=== PATIENT | female | born 2000 ===

== ENCOUNTER 2021-05-13 05:26 | Emergency (ER) | payer BC ==
[2021-05-13 05:54] VITALS: BP 122/77; PULSE 85; TEMP 99
[2021-05-13 05:56] VITALS: RESP 15
--- NOTE | 2021-05-13 06:34 | ED ---
General Adult HPI - General Chief complaint: ENT Stated complaint: Cough Time Seen by Provider: 05/13/21 05:59 Source: patient, RN notes reviewed Mode of arrival: ambulatory Limitations: no limitations - History of Present Illness Initial comments: This 21-year-old female presents to the emergency department with a cough x5 days. She states that 8 days ago she received her second COVID vaccine, and then started having night sweats next day. She states a few days after she received the vaccine she developed a dry cough. Patient admits to having di arrhea, sweats/chills, and a runny nose. She denies any chest pain, shortness of breath, vomiting, or sore throat. Patient states she works with [employer] for her job. Patient has been taking Mucinex and Robitussin which seems to help her cough. She states the cold air worsens or cough. -: days(s) Radiation: non-radiation Consistency: intermittent Improves with: medication Worsens with: cold therapy Associated Symptoms: diaphoresis, fever/chills - Related Data Allergies Allergy/AdvReac Type Severity Reaction Status Date / Time No Known Allergies Allergy Verified 05/13/21 05:54 Review of Systems ROS Statement: Those systems with pertinent positive or pertinent negative responses have been documented in the HPI. ROS Other: All systems not noted in ROS Statement are negative. Constitutional: Reports: chills, night sweats Past Medical History Past Medical History: Asthma History of Any Multi-Drug Resistant Organisms: None Reported Past Surgical History: No Surgical Hx Reported Past Psychological History: Anxiety Smoking Status: Never smoker Past Alcohol Use History: Occasional Past Drug Use History: Marijuana General Exam Limitations: no limitations General appearance: alert, in no apparent distress Head exam: Present: atraumatic, normocephalic, normal inspection Eye exam: Present: normal appearance, PERRL, EOMI. Absent: scleral icterus, conjunctival injection, periorbital swelling ENT exam: Present: normal exam, mucous membranes moist Neck exam: Present: normal inspection. Absent: tenderness, meningismus, lymphadenopathy Respiratory exam: Present: normal lung sounds bilaterally. Absent: respiratory distress, wheezes, rales, rhonchi, stridor Cardiovascular Exam: Present: regular rate, normal rhythm, normal heart sounds. Absent: systolic murmur, diastolic murmur, rubs, gallop, clicks GI/Abdominal exam: Present: soft, tenderness (Diffuse tenderness to palpation), normal bowel sounds. Absent: distended, guarding, rebound, rigid Extremities exam: Present: full ROM. Absent: tenderness, pedal edema, joint sw elling, calf tenderness Neurological exam: Present: alert, oriented X3 Psychiatric exam: Present: normal affect Skin exam: Present: warm, dry, intact, normal color. Absent: rash Course Vital Signs 05/13/21 05/13/21 05:48 05:55 Temperature 99 F Pulse Rate 85 Respiratory 20 15 Rate Blood Pressure 122/77 O2 Sat by Pulse 100 Oximetry Medical Decision Making - Medical Decision Making This 21-year-old female had a negative covid test. Diagnosed with viral upper respiratory infection. - Lab Data Lab Results 05/13/21 Range/Units 05:57 Coronavirus (PCR) Not Detected (Not Detectd) Disposition Clinical Impression: Viral URI with cough Disposition: HOME SELF-CARE Condition: Stable Instructions (If sedation given, give patient instructions): Upper Respiratory Infection (DC) Additional Instructions: Please return to the ER if symptoms worsen. Is patient prescribed a controlled substance at d/c from ED?: No Referrals: None,Stated [Primary Care Provider] - 1-2 days Time of Disposition: 08:15
== END 2021-05-13 08:40 | disposition home or self-care (01) ==
LOC: EC 05:26
DX: J06.9 Acute upper respiratory infection, unspecified (principal); J45.909 Unspecified asthma, uncomplicated; F41.9 Anxiety disorder, unspecified; F12.90 Cannabis use, unspecified, uncomplicated; Z72.89 Other problems related to lifestyle
CPT/HCPCS: 87635; 99283

== ENCOUNTER 2021-08-10 01:25 | Emergency (ER) | payer BC, OTHER ==
[2021-08-10 01:48] VITALS: BP 129/70; PULSE 53; RESP 18; TEMP 97.3
[2021-08-10] MEDS ORDERED: ONDANSETRON 4 MG/2 ML VIAL IVP STA (02:12)
[2021-08-10] MEDS ORDERED: KETOROLAC 15 MG/ML 1 ML VIAL IVP STA (02:12)
[2021-08-10] MEDS ORDERED: SODIUM CHLORIDE 0.9% 1,000 ML IV STA (02:12)
[2021-08-10 02:17] LABS: Amorphous Sediment,Urine Rare /hpf; Appearance,Urine Cloudy (Clear); Bilirubin,Urine Negative (Negative); Blood,Urine Negative (Negative); Color,Urine Light Yellow; Glucose,Urine (UA) Negative (Negative); Ketones,Urine Negative (Negative); Leukocyte Esterase,Urine Negative (Negative); Mucus,Urine Rare /hpf; Nitrite,Urine Negative (Negative); PH, Urine 6.5 (5.0-8.0); Protein,Urine Negative (Negative); Squamous Epithelial Cell,Urine 3 /hpf (0-4); Urobilinogen,Urine <2.0 mg/dL (<2.0); WBC,Urine 2 /hpf (0-5)
--- NOTE | 2021-08-10 02:19 | ED ---
General Adult HPI - General Chief complaint: Back Pain/Injury Stated complaint: Back Pain Time Seen by Provider: 08/10/21 02:05 Source: patient, RN notes reviewed, old records reviewed Mode of arrival: ambulatory - History of Present Illness Initial comments: 21-year-old female presents complaining of rectal bleeding and right lower back pain. Patient states that she was seen for this at urgent care 3 weeks ago was told she had hemorrhoids. Patient states that she notices the bleeding only during bowel movements. She is also complaining of some nausea and vomiting, denies any dysuria, or fevers. Patient states that she is not sure if she is . Was told at urgent care she was positive for 3 weeks ago but went to [facility] 2 weeks ago to confirm and was told it was negative. She denies any vaginal bleeding or discharge. History of asthma. She smokes marijuana, no other drug use. -: week(s) (3) Severity scale (1-10): 0 Consistency: intermittent, now resolved Worsens with: other (bowel movements) Associated Symptoms: other (rectal bleeding, right lower back pain) - Related Data Previous Rx's Medication Instructions Recorded Lidocaine 5% Patch [Lidoderm] 1 patch TOPICAL DAILY PRN 7 Days 08/10/21 #7 patch polyethylene glycoL 3350 [Miralax] 17 gm PO DAILY 30 Days #30 packet 08/10/21 Allergies Allergy/AdvReac Type Severity Reaction Status Date / Time amoxicillin AdvReac Rash/Hives Verified 08/10/21 01:48 Review of Systems ROS Statement: Those systems with pertinent positive or pertinent negative responses have been documented in the HPI. ROS Other: All systems not noted in ROS Statement are negative. Past Medical History Past Medical History: Asthma History of Any Multi-Drug Resistant Organisms: None Reported Past Surgical History: No Surgical Hx Reported Past Psychological History: Anxiety, Depression Smoking Status: Never smoker Past Alcohol Use History: Occasional Past Drug Use History: Marijuana General Exam Limitations: no limitations General appearance: alert, in no apparent distress Head exam: Present: atraumatic Eye exam: Present: normal appearance. Absent: scleral icterus, conjunctival injection ENT exam: Present: normal exam, normal oropharynx, mucous membranes moist Neck exam: Present: normal inspection, full ROM. Absent: tenderness, meningismus Respiratory exam: Present: normal lung sounds bilaterally. Absent: respiratory distress, wheezes, rales, rhonchi, stridor, accessory muscle use, decreased breath sounds Cardiovascular Exam: Present: bradycardia, normal heart sounds GI/Abdominal exam: Present: soft, normal bowel sounds. Absent: distended, tenderness, guarding, rebound, rigid Rectal exam: Present: hemorrhoids (one hemorrhoid at 6oc[address], not thrombosed no active bleeding, no tenderness) Extremities exam: Present: normal capillary refill. Absent: pedal edema Back exam: Present: normal inspection, full ROM, tenderness (Right lumbar sacral paraspinal tenderness). Absent: CVA tenderness (R), CVA tenderness (L), vertebral tenderness, rash noted Neurological exam: Present: alert, oriented X3 Psychiatric exam: Present: normal affect, normal mood Skin exam: Present: warm, dry, normal color. Absent: rash, cyanosis, diaphoretic, pallor Course Vital Signs 08/10/21 01:42 Temperature 97.3 F L Pulse Rate 53 L Respiratory 18 Rate Blood Pressure 129/70 O2 Sat by Pulse 99 Oximetry Medical Decision Making - Medical Decision Making 21-year-old female presents complaining of rectal bleeding with bowel movements and right lower back pain. She is also complaining of some nausea and vomiting, denies any dysuria, or fevers. Denies any vaginal bleeding or discharge. UA shows no evidence of infection, blood, ketones or . Hemoglobin and hematocrit are stable no evidence of leukocytosis. X-ray shows no intestinal obstruction or pneumoperitoneum. There is no evidence of mass and fecal pattern is normal. Upon exam patient's abdomen is soft and nontender. She does have pain to the r ight lower LS-spine. Rectal exam does show a small nonthrombosed hemorrhoid at 6:00. No fissure noted. Patient's rectal bleeding likely due to hemorrhoids. She no longer has vomiting after given Zofran in the emergency room. She was prescribed MiraLAX for constipation and Lidoderm patches for low back pain. She is instructed to follow-up with her primary care doctor and return to the emergency room with any new or concerning symptoms. - Lab Data Result diagrams: 08/10/21 02:14 08/10/21 02:14 Lab Results 08/10/21 08/10/21 08/10/21 Range/Units 02:02 02:02 02:14 WBC 4.7 (3.8-10.6) k/uL RBC 4.34 (3.80-5.40) m/uL Hgb 11.2 L (11.4-16.0) gm/dL Hct 36.2 (34.0-46.0) % MCV 83.5 (80.0-100.0) fL MCH 25.7 (25.0-35.0) pg MCHC 30.8 L (31.0-37.0) g/dL RDW 14.6 (11.5-15.5) % Plt Count 271 (150-450) k/uL MPV 7.0 Neutrophils % 35 % Lymphocytes % 48 % Monocytes % 6 % Eosinophils % 8 % Basophils % 1 % Neutrophils # 1.6 (1.3-7.7) k/uL Lymphocytes # 2.3 (1.0-4.8) k/uL Monocytes # 0.3 (0-1.0) k/uL Eosinophils # 0.4 (0-0.7) k/uL Basophils # 0.0 (0-0.2) k/uL Hypochromasia Slight PT (9.0-12.0) sec INR (<1.2) APTT (22.0-30.0) sec Sodium (137-145) mmol/L Potassium (3.5-5.1) mmol/L Chloride (98-107) mmol/L Carbon Dioxide (22-30) mmol/L Anion Gap mmol/L BUN (7-17) mg/dL Creatinine (0.52-1.04) mg/dL Est GFR (CKD-EPI)AfAm (>60 ml/min/1.73 sqM) Est GFR (CKD-EPI)NonAf (>60 ml/min/1.73 sqM) Glucose (74-99) mg/dL Calcium (8.4-10.2) mg/dL Total Bilirubin (0.2-1.3) mg/dL AST (14-36) U/L ALT (4-34) U/L Alkaline Phosphatase (38-126) U/L Total Protein (6.3-8.2) g/dL Albumin (3.5-5.0) g/dL Amylase (30-110) U/L Lipase (23-300) U/L Urine Color Light Yellow Urine Appearance Cloudy H (Clear) Urine pH 6.5 (5.0-8.0) Ur Specific [place] 1.020 (1.001-1.035) Urine Protein Negative (Negative) Urine Glucose (UA) Negative (Negative) Urine Ketones Negative (Negative) Urine Blood Negative (Negative) Urine Nitrite Negative (Negative) Urine Bilirubin Negative (Negative) Urine Urobilinogen <2.0 (<2.0) mg/dL Ur Leukocyte Esterase Negative (Negative) Urine WBC 2 (0-5) /hpf Ur Squamous Epith Cells 3 (0-4) /hpf Amorphous Sediment Rare H (None) /hpf Urine Mucus Rare H (None) /hpf Urine HCG, Qual Not Detected (Not Detectd) 08/10/21 08/10/21 Range/Units 02:14 02:14 WBC (3.8-10.6) k/uL RBC (3.80-5.40) m/uL Hgb (11.4-16.0) gm/dL Hct (34.0-46.0) % MCV (80.0-100.0) fL MCH (25.0-35.0) pg MCHC (31.0-37.0) g/dL RDW (11.5-15.5) % Plt Count (150-450) k/uL MPV Neutrophils % % Lymphocytes % % Monocytes % % Eosinophils % % Basophils % % Neutrophils # (1.3-7.7) k/uL Lymphocytes # (1.0-4.8) k/uL Monocytes # (0-1.0) k/uL Eosinophils # (0-0.7) k/uL Basophils # (0-0.2) k/uL Hypochromasia PT 10.4 (9.0-12.0) sec INR 0.9 (<1.2) APTT 24.8 (22.0-30.0) sec Sodium 137 (137-145) mmol/L Potassium 4.4 (3.5-5.1) mmol/L Chloride 108 H (98-107) mmol/L Carbon Dioxide 21 L (22-30) mmol/L Anion Gap 8 mmol/L BUN 16 (7-17) mg/dL Creatinine 0.87 (0.52-1.04) mg/dL Est GFR (CKD-EPI)AfAm >90 (>60 ml/min/1.73 sqM) Est GFR (CKD-EPI)NonAf >90 (>60 ml/min/1.73 sqM) Glucose 98 (74-99) mg/dL Calcium 9.3 (8.4-10.2) mg/dL Total Bilirubin 0.6 (0.2-1.3) mg/dL AST 35 (14-36) U/L ALT 21 (4-34) U/L Alkaline Phosphatase 67 (38-126) U/L Total Protein 7.8 (6.3-8.2) g/dL Albumin 4.6 (3.5-5.0) g/dL Amylase 125 H (30-110) U/L Lipase 231 (23-300) U/L Urine Color Urine Appearance (Clear) Urine pH (5.0-8.0) Ur Specific [place] (1.001-1.035) Urine Protein (Negative) Urine Glucose (UA) (Negative) Urine Ketones (Negative) Urine Blood (Negative) Urine Nitrite (Negative) Urine Bilirubin (Negative) Urine Urobilinogen (<2.0) mg/dL Ur Leukocyte Esterase (Negative) Urine WBC (0-5) /hpf Ur Squamous Epith Cells (0-4) /hpf Amorphous Sediment (None) /hpf Urine Mucus (None) /hpf Urine HCG, Qual (Not Detectd) Disposition Clinical Impression: Constipation, Vomiting, Back pain Disposition: HOME SELF-CARE Condition: Good Instructions (If sedation given, give patient instructions): Constipation (ED), Acute Nausea and Vomiting (ED), Acute Low Back Pain (ED) Additional Instructions: Increase your fluid intake. Take the MiraLAX 1 packet a day for constipation. Stop taking if you develop diarrhea. You can take Benadryl [id number] for any nausea. I would suggest taking Pepcid or Tums for upset stomach. Use Lidoderm patches for pain relief. You can also take Tylenol and or Motrin as needed for pain. Follow-up with your primary care doctor next week to discuss your symptoms. Return to the emergency room with any new or concerning symptoms. Prescriptions: Lidocaine 5% Patch [Lidoderm] 1 patch TOPICAL DAILY PRN 7 Days #7 patch PRN Reason: Pain polyethylene glycoL 3350 [Miralax] 17 gm PO DAILY 30 Days #30 packet Is patient prescribed a controlled substance at d/c from ED?: No Referrals: None,Stated [Primary Care Provider] - 1-2 days Time of Disposition: 03:16
[2021-08-10 02:40] LABS: Basophils % (A) 1 %; Eosinophils # (A) 0.4 k/uL (0-0.7); Eosinophils % (A) 8 %; HCT 36.2 % (34.0-46.0); HGB 11.2 gm/dL (11.4-16.0); Hypochromasia Slight; Lymphocytes # (A) 2.3 k/uL (1.0-4.8); Lymphocytes % (A) 48 %; MCH 25.7 pg (25.0-35.0); MCHC 30.8 g/dL (31.0-37.0); MCV 83.5 fL (80.0-100.0); Monocytes # (A) 0.3 k/uL (0-1.0); Monocytes % (A) 6 %; Neutrophils # (A) 1.6 k/uL (1.3-7.7); Neutrophils % (A) 35 %; Platelet Count 271 k/uL (150-450); RBC 4.34 m/uL (3.80-5.40); RDW 14.6 % (11.5-15.5); WBC 4.7 k/uL (3.8-10.6)
--- NOTE | 2021-08-10 02:42 | XR ---
EXAMINATION TYPE: XR KUB DATE OF EXAM: 08/10/2021 COMPARISON: NONE HISTORY: Pain TECHNIQUE: 2 views FINDINGS: 2 views upright show no sign of intestinal obstruction or pneumoperitoneum. Fecal pattern i s normal. There is no evidence of a mass. IMPRESSION: Nonacute abdomen.
[2021-08-10 02:45] LABS: INR 0.9 (<1.2); Partial Thromboplastin Time 24.8 sec (22.0-30.0); Prothrombin Time 10.4 sec (9.0-12.0)
[2021-08-10] MEDS ORDERED: FAMOTIDINE 20 MG/2 ML VIAL IV STA (02:51)
[2021-08-10 02:53] LABS: ALT 21 U/L (4-34); African American GFR (CKD) >90 (>60 ml/min/1.73 sqM); Albumin 4.6 g/dL (3.5-5.0); Amylase 125 U/L (30-110); Anion Gap 8 mmol/L; Blood Urea Nitrogen 16 mg/dL (7-17); Calcium 9.3 mg/dL (8.4-10.2); Carbon Dioxide 21 mmol/L (22-30); Chloride 108 mmol/L (98-107); Glucose 98 mg/dL (74-99); Lipase 231 U/L (23-300); Non-African American GFR(CKD) >90 (>60 ml/min/1.73 sqM); Sodium 137 mmol/L (137-145); Total Bilirubin 0.6 mg/dL (0.2-1.3); Total Protein 7.8 g/dL (6.3-8.2)
[2021-08-10 02:55] LABS: AST 35 U/L (14-36); Alkaline Phosphatase 67 U/L (38-126); Potassium 4.4 mmol/L (3.5-5.1)
[2021-08-10] MEDS ORDERED: LIDOCAINE 5% PATCH TOPICAL STA (03:19)
== END 2021-08-10 04:10 | disposition home or self-care (01) ==
LOC: EC 01:25
DX: K59.00 Constipation, unspecified (principal); K64.9 Unspecified hemorrhoids; R11.2 Nausea with vomiting, unspecified; M54.50 Low back pain, unspecified; F12.90 Cannabis use, unspecified, uncomplicated
CPT/HCPCS: 36415; 80053; 82150; 83690; 85025; 85610; 85730; 81001; 81025; 74018; 99284; 96374; 96375 ×2; 96361; J2405; J1885

== ENCOUNTER 2021-08-12 14:01 | Emergency (ER) | payer OTHER ==
[2021-08-12 14:20] VITALS: RESP 18; TEMP 99.2
[2021-08-12] MEDS ORDERED: KETOROLAC 15 MG/ML 1 ML VIAL IVP STA (14:42)
[2021-08-12] MEDS ORDERED: ONDANSETRON 4 MG/2 ML VIAL IVP STA (14:42)
[2021-08-12] MEDS ORDERED: SODIUM CHLORIDE 0.9% 1,000 ML IV STA (14:42)
[2021-08-12 15:01] LABS: Basophils % (A) 1 %; Eosinophils # (A) 0.4 k/uL (0-0.7); Eosinophils % (A) 8 %; HCT 35.7 % (34.0-46.0); HGB 11.4 gm/dL (11.4-16.0); Lymphocytes # (A) 1.7 k/uL (1.0-4.8); Lymphocytes % (A) 40 %; MCH 26.5 pg (25.0-35.0); MCHC 31.9 g/dL (31.0-37.0); MCV 83.1 fL (80.0-100.0); Mean Platelet Volume 6.9; Monocytes # (A) 0.3 k/uL (0-1.0); Monocytes % (A) 6 %; Neutrophils # (A) 1.8 k/uL (1.3-7.7); Neutrophils % (A) 42 %; Platelet Count 295 k/uL (150-450); RDW 14.7 % (11.5-15.5); WBC 4.3 k/uL (3.8-10.6)
[2021-08-12 15:12] LABS: ALT 27 U/L (4-34); AST 35 U/L (14-36); African American GFR (CKD) >90 (>60 ml/min/1.73 sqM); Albumin 4.8 g/dL (3.5-5.0); Alkaline Phosphatase 56 U/L (38-126); Amylase 110 U/L (30-110); Anion Gap 11 mmol/L; Blood Urea Nitrogen 14 mg/dL (7-17); Calcium 9.8 mg/dL (8.4-10.2); Carbon Dioxide 23 mmol/L (22-30); Chloride 106 mmol/L (98-107); Glucose 83 mg/dL (74-99); Lipase 201 U/L (23-300); Non-African American GFR(CKD) 87 (>60 ml/min/1.73 sqM); Sodium 140 mmol/L (137-145); Total Bilirubin 0.6 mg/dL (0.2-1.3); Total Protein 8.1 g/dL (6.3-8.2)
--- NOTE | 2021-08-12 15:12 | ED ---
GI Bleed HPI - General Chief complaint: GI Bleed Stated complaint: GI Bleeding, Abdominal Pain Time Seen by Provider: 08/12/21 14:27 Source: patient, family, RN notes reviewed Mode of arrival: ambulatory Limitations: no limitations - History of Present Illness Initial comments: This is a 21-year-old female who presents to the emergency Department for hem atemesis and hematochezia. She was evaluated in the emergency department 2 days ago for rectal bleeding. Workup at that time was unremarkable, imaging included a KUB, which revealed no acute abnormalities. On rectal exam, she was noted to have a small nonthrombosed hemorrhoid. Patient states that since this time, her symptoms have progressed. The amount of blood with each episode of emesis varie s, states that if she eats more, she has more blood. Bowel movements are described as either only blood or hai blood mixed with stool. Denies feeling constipated, but does feel a generalized abdominal pain. She would not describe this as a feeling of bloating or burning, but states that she has aching primarily in the bilateral upper quadrants. Symptoms have been going on for 5 days, with the nausea and vomiting present for 4 days, and she is unable to keep anything down. Overall, she states that she just continues to feel worse. States that she is from [place] but recently moved here, and is in the process of having medicaid approved. Until she has medicaid approved, she is unable to see a specialist. She also does not have a primary care provider since she has just moved to the area. MD complaint: blood streaked emesis, blood streaked stool, gross hematochezia Onset/Timin -: days(s) Radiation: none Context: hemorrhoids Associated Symptoms: abdominal pain, nausea, vomiting - Related Data Home Medications Medication Instructions Recorded Confirmed Calcium Carbonate [Tums] 500 mg PO QID PRN 08/12/21 08/12/21 Previous Rx's Medication Instructions Recorded Lidocaine 5% Patch [Lidoderm] 1 patch TOPICAL DAILY PRN 7 Days 08/10/21 #7 patch polyethylene glycoL 3350 [Miralax] 17 gm PO DAILY 30 Days #30 packet 08/10/21 Famotidine/Ca Carb/Mag Hydrox 1 tab PO QAM 14 Days #14 tab 08/12/21 [Pepcid Complete Tablet Chew] Metoclopramide Oral Soln [Reglan 10 mg PO QID PRN #450 ml 08/12/21 Oral Soln] Ondansetron Odt [Zofran Odt] 4 mg PO Q8HR PRN #10 tab 08/12/21 Simethicone [Simethicone Chew] 80 mg PO QID PRN #30 tab 08/12/21 Allergies Allergy/AdvReac Type Severity Reaction Status Date / Time amoxicillin AdvReac Rash/Hives Verified 08/12/21 16:05 Review of Systems ROS Statement: Those systems with pertinent positive or pertinent negative responses have been documented in the HPI. ROS Other: All systems not noted in ROS Statement are negative. Constitutional: Reports: chills. Denies: fever ENT: Denies: ear pain, throat pain Respiratory: Denies: cough, dyspnea Cardiovascular: Denies: chest pain, palpitations Gastrointestinal: Reports: abdominal pain, nausea, vomiting, hematemesis, hematochezia Genitourinary: Denies: urgency, dysuria Skin: Denies: rash Neurological: Denies: headache Past Medical History Past Medical History: Asthma History of Any Multi-Drug Resistant Organisms: None Reported Past Surgical History: No Surgical Hx Reported Past Psychological History: Anxiety, Depression Smoking Status: Never smoker Past Alcohol Use History: Occasional Past Drug Use History: Marijuana General Exam Limitations: no limitations General appearance: alert, in distress Head exam: Present: atraumatic, normocephalic, normal inspection Neck exam: Present: normal inspection. Absent: tenderness, meningismus, lymphadenopathy Respiratory exam: Present: normal lung sounds bilaterally. Absent: respiratory distress, wheezes, rales, rhonchi, stridor Cardiovascular Exam: Present: regular rate, normal rhythm, normal heart sounds. Absent: systolic murmur, diastolic murmur, rubs, gallop, clicks GI/Abdominal exam: Present: soft, tenderness (epigastric region), hyperactive bowel sounds. Absent: distended, guarding, rebound, rigid, organomegaly, mass Neurological exam: Present: alert, oriented X3, CN II-XII intact Psychiatric exam: Present: normal affect, normal mood Skin exam: Present: warm, dry, intact, normal color. Absent: rash Course Vital Signs 08/12/21 08/12/21 14:18 15:20 Temperature 99.2 F Pulse Rate 68 82 Respiratory 18 18 Rate Blood Pressure 118/68 O2 Sat by Pulse 100 98 Oximetry Medical Decision Making - Medical Decision Making This is a 21-year-old female who presents to the emergency department with hematemesis and hematochezia. Repeat lab work and UA obtained, which were unremarkable, and even improved from 2 days ago. She was rehydrated with a liter of normal saline. Zofran was not effective for patient's nausea. Reglan administered. Patient noted improvement after Reglan administration. Given that the patient has had persistent hematochezia, we will proceed with additional imaging for further evaluation patient's symptoms. CTA abd/pelvis obtained per GI bleed protocol. Imaging unremarkable. Discussed with the patient that this is most likely related to internal hemorrhoids, especially since it is painless and bright red. Information for patient to follow up with Dr. Khalil, general surgery, listed on the patient's discharge form. Advised that she may need a colonoscopy and EGD. Patient is also advised to take sitz baths and eat high fiber foods. Also advised she take the MiraLAX previously pres cribed to avoid constipation and excessive straining. GI cocktail provided. Patient notes improvement in burning and gas. Epigastric pain and burning is likely related to uncontrolled acid reflux and gas. Patient advised that she will likely need to begin a preventative, such as omeprazole or Zantac, as daily use of Tums and Rolaids is not an adequate treatment option. Rx for Pepcid and simethacone provided. Patient given rx for both Zofran and Reglan, as reglan is much more effective for her, however it makes her very sleepy. While zofran is less effective, she can take it at work as it is not sedating for her. Patient was able to eat Jello and drink Niki Mist prior to discharge. Return precautions reviewed in depth, the patient is instructed to return to the emergency department if symptoms worsen, including but not limited to, increasing abdominal pain, recurrent bleeding, uncontrollable nausea/vomiting, or fevers/chills. Patient verbalized understanding. This case was discussed in detail with the attending ED physician. Presentation, findings, and treatment plan discussed in detail as well. - Lab Data Result diagrams: 08/12/21 14:54 08/12/21 14:54 Lab Results 08/12/21 08/12/21 08/12/21 Range/Units 14:54 14:54 14:54 WBC 4.3 (3.8-10.6) k/uL RBC 4.30 (3.80-5.40) m/uL Hgb 11.4 (11.4-16.0) gm/dL Hct 35.7 (34.0-46.0) % MCV 83.1 (80.0-100.0) fL MCH 26.5 (25.0-35.0) pg MCHC 31.9 (31.0-37.0) g/dL RDW 14.7 (11.5-15.5) % Plt Count 295 (150-450) k/uL MPV 6.9 Neutrophils % 42 % Lymphocytes % 40 % Monocytes % 6 % Eosinophils % 8 % Basophils % 1 % Neutrophils # 1.8 (1.3-7.7) k/uL Lymphocytes # 1.7 (1.0-4.8) k/uL Monocytes # 0.3 (0-1.0) k/uL Eosinophils # 0.4 (0-0.7) k/uL Basophils # 0.0 (0-0.2) k/uL Sodium 140 (137-145) mmol/L Potassium 4.0 (3.5-5.1) mmol/L Chloride 106 (98-107) mmol/L Carbon Dioxide 23 (22-30) mmol/L Anion Gap 11 mmol/L BUN 14 (7-17) mg/dL Creatinine 0.94 (0.52-1.04) mg/dL Est GFR (CKD-EPI)AfAm >90 (>60 ml/min/1.73 sqM) Est GFR (CKD-EPI)NonAf 87 (>60 ml/min/1.73 sqM) Glucose 83 (74-99) mg/dL Plasma Lactic Acid Mau 1.0 (0.7-2.0) mmol/L Calcium 9.8 (8.4-10.2) mg/dL Total Bilirubin 0.6 (0.2-1.3) mg/dL AST 35 (14-36) U/L ALT 27 (4-34) U/L Alkaline Phosphatase 56 (38-126) U/L Total Protein 8.1 (6.3-8.2) g/dL Albumin 4.8 (3.5-5.0) g/dL Amylase 110 (30-110) U/L Lipase 201 (23-300) U/L Urine Color Urine Appearance (Clear) Urine pH (5.0-8.0) Ur Specific [place] (1.001-1.035) Urine Protein (Negative) Urine Glucose (UA) (Negative) Urine Ketones (Negative) Urine Blood (Negative) Urine Nitrite (Negative) Urine Bilirubin (Negative) Urine Urobilinogen (<2.0) mg/dL Ur Leukocyte Esterase (Negative) Urine HCG, Qual (Not Detectd) Influenza Type A (PCR) (Not Detectd) Influenza Type B (PCR) (Not Detectd) RSV (PCR) (Not Detectd) SARS-CoV-2 (PCR) (Not Detectd) 08/12/21 08/12/21 08/12/21 Range/Units 15:49 15:49 15:49 WBC (3.8-10.6) k/uL RBC (3.80-5.40) m/uL Hgb (11.4-16.0) gm/dL Hct (34.0-46.0) % MCV (80.0-100.0) fL MCH (25.0-35.0) pg MCHC (31.0-37.0) g/dL RDW (11.5-15.5) % Plt Count (150-450) k/uL MPV Neutrophils % % Lymphocytes % % Monocytes % % Eosinophils % % Basophils % % Neutrophils # (1.3-7.7) k/uL Lymphocytes # (1.0-4.8) k/uL Monocytes # (0-1.0) k/uL Eosinophils # (0-0.7) k/uL Basophils # (0-0.2) k/uL Sodium (137-145) mmol/L Potassium (3.5-5.1) mmol/L Chloride (98-107) mmol/L Carbon Dioxide (22-30) mmol/L Anion Gap mmol/L BUN (7-17) mg/dL Creatinine (0.52-1.04) mg/dL Est GFR (CKD-EPI)AfAm (>60 ml/min/1.73 sqM) Est GFR (CKD-EPI)NonAf (>60 ml/min/1.73 sqM) Glucose (74-99) mg/dL Plasma Lactic Acid [place]au (0.7-2.0) mmol/L Calcium (8.4-10.2) mg/dL Total Bilirubin (0.2-1.3) mg/dL AST (14-36) U/L ALT (4-34) U/L Alkaline Phosphatase (38-126) U/L Total Protein (6.3-8.2) g/dL Albumin (3.5-5.0) g/dL Amylase (30-110) U/L Lipase (23-300) U/L Urine Color Colorless Urine Appearance Clear (Clear) Urine pH 7.0 (5.0-8.0) Ur Specific [place] 1.004 (1.001-1.035) Urine Protein Negative (Negative) Urine Glucose (UA) Negative (Negative) Urine Ketones Negative (Negative) Urine Blood Negative (Negative) Urine Nitrite Negative (Negative) Urine Bilirubin Negative (Negative) Urine Urobilinogen <2.0 (<2.0) mg/dL Ur Leukocyte Esterase Negative (Negative) Urine HCG, Qual Not Detected (Not Detectd) Influenza Type A (PCR) Not Detected (Not Detectd) Influenza Type B (PCR) Not Detected (Not Detectd) RSV (PCR) Not Detected (Not Detectd) SARS-CoV-2 (PCR) Not Detected (Not Detectd) - Radiology Data Radiology results: report reviewed, image reviewed Disposition Clinical Impression: Hematochezia Disposition: HOME SELF-CARE Instructions (If sedation given, give patient instructions): Hemorrhoids (ED), Thrombosed Hemorrhoid (ED), Gastrointestinal Bleeding (ED) Additional Instructions: Return to the emergency department if symptoms worsen, including but not limited to, increasing abdominal pain, recurrent bleeding, uncontrollable nausea/vomiting, or fevers/chills. Take sitz bath and eat high fiber foods. Use the MiraLAX previously prescribed to avoid constipation and excessive straining. Contact Dr. Khalil's office for further evaluation of symptoms. Is patient prescribed a controlled substance at d/c from ED?: No Referrals: None,Stated [Primary Care Provider] - 1-2 days Ricardo Khalil MD [Medical Doctor] - 1-2 days
[2021-08-12] MEDS ORDERED: METOCLOPRAMIDE 5 MG/ML 2 ML VIAL IVP STA (15:54)
[2021-08-12 16:01] LABS: Appearance,Urine Clear (Clear); Bilirubin,Urine Negative (Negative); Blood,Urine Negative (Negative); Color,Urine Colorless; Glucose,Urine (UA) Negative (Negative); Ketones,Urine Negative (Negative); Leukocyte Esterase,Urine Negative (Negative); Nitrite,Urine Negative (Negative); Protein,Urine Negative (Negative); Specific Gravity,Urine 1.004 (1.001-1.035); Urobilinogen,Urine <2.0 mg/dL (<2.0)
[2021-08-12 16:38] LABS: Influenza A Not Detected (Not Detectd); Influenza B Not Detected (Not Detectd)
--- NOTE | 2021-08-12 18:28 | CT ---
EXAMINATION TYPE: CT angio abdomen pelvis CT DLP: 1129.6 mGycm, Automated exposure control for dose reduction was used. DATE OF EXAM: 08/12/2021 5:59 PM COMPARISON: None CLINICAL INDICATION:Female, 21 years old with history of Epigastric pain; GI bleed, vomiting blood TECHNIQUE: Multiple thin slice sub-millimeter images were obtained through the abdomen, pelvis, and l ower extremities after administration of contrast. Patient was given Isovue 370, 100 cc intravenousl y. Maximum intensity projection images were obtained of the abdomen, pelvis, and lower extremities. FINDINGS: CTA Abdomen and pelvis: The abdominal aorta does not demonstrate aneurysmal dilatation. Theorigins o f the superior mesenteric artery, renal arteries, inferior mesenteric artery, and celiac axis are pat ent. The iliac vessels are normal in morphology. There is a replaced right hepatic artery off the s uperior mesenteric artery. Arterial, portal venous and delayed phase imaging demonstrate no evidence of hemorrhage.. LIVER: Unremarkable GALLBLADDER AND BILE DUCTS: Unremarkable. PANCREAS: Unremarkable. SPLEEN: Unremarkable. ADRENAL GLANDS: Unremarkable. KIDNEYS AND URETERS: No evidence of hydronephrosis or renal calculus. The ureters are unremarkable. PELVIS BLADDER: Unremarkable REPRODUCTIVE: Unremarkable. ABDOMEN & PELVIS STOMACH AND BOWEL: No evidence of bowel obstruction. PERITONEUM: No evidence of pneumoperitoneum or free fluid. VASCULATURE: No evidence of aortic aneurysm. MUSCULOSKELETAL: No acute osseous abnormalities LYMPH NODES: No gross evidence for lymphadenopathy. SOFT TISSUE/ABDOMINAL WALL: Unremarkable IMPRESSION No evidence of vascular occlusion or gastrointestinal hemorrhage..
[2021-08-12] MEDS ORDERED: MAG HYDROX/AL HYDROX/SIMETH 30 ML, HYOSCYAMINE ELIXIR 10 ML, LIDOCAINE VISCOUS 2% 10 ML PO STA ×3 (18:37)
[2021-08-12 18:38] VITALS: BP 118/68; PULSE 82
== END 2021-08-12 20:58 | disposition home or self-care (01) ==
LOC: EC 14:01
DX: K92.1 Melena (principal); J45.909 Unspecified asthma, uncomplicated; F41.9 Anxiety disorder, unspecified; F32.A Depression, unspecified; F12.90 Cannabis use, unspecified, uncomplicated; Z20.822 Contact with and (suspected) exposure to COVID-19
CPT/HCPCS: 99284; 96374; 96375 ×2; 96361; 36415; 80053; 82150; 83605; 83690; 85025; 81003; 81025; 87636; 74174; J2765; J2405; J1885; Q9967

== ENCOUNTER 2022-03-29 17:18 | Emergency (ER) | payer OTHER ==
--- NOTE | 2022-03-29 19:41 | ED ---
Female Urogenital HPI - General Chief complaint: Vaginal Bleeding Stated complaint: poss misscarriage, 3-4wk preg Time Seen by Provider: 03/29/22 18:58 Source: patient, RN notes reviewed Mode of arrival: ambulatory Limitations: no limitations - History of Present Illness Initial comments: This is a 22-year-old female who presents to the emergency department for vaginal bleeding. States that she's approximately 3-4 weeks and is A1. Yesterday she had light brown blood in the toilet followed by one dark clot. Today, she has had bright red blood. Denies any abdominal pain, headaches, nausea, or vomiting. This is her second , she had a miscarriage earlier this year. 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 Denies any fevers, chills, sore throat, cough, dyspnea, chest pain, palpitations, abdominal pain, nausea, vomiting, diarrhea, back pain, or headaches. MD Complaint: vaginal bleeding Onset/Timin -: days(s) Last Menstrual Period: 01/25/22 Patient : Yes Number of weeks : 4 - Related Data Home Medications Medication Instructions Recorded Confirmed Calcium Carbonate [Tums] 500 mg PO QID PRN 08/12/21 08/12/21 Previous Rx's Medication Instructions Recorded Lidocaine 5% Patch [Lidoderm] 1 patch TOPICAL DAILY PRN 7 Days 08/10/21 #7 patch polyethylene glycoL 3350 [Miralax] 17 gm PO DAILY 30 Days #30 packet 08/10/21 Famotidine/Ca Carb/Mag Hydrox 1 tab PO QAM 14 Days #14 tab 08/12/21 [Pepcid Complete Tablet Chew] Metoclopramide Oral Soln [Reglan 10 mg PO QID PRN #450 ml 08/12/21 Oral Soln] Ondansetron Odt [Zofran Odt] 4 mg PO Q8HR PRN #10 tab 08/12/21 Simethicone [Simethicone Chew] 80 mg PO QID PRN #30 tab 08/12/21 Cephalexin [Keflex] 500 mg PO Q8HR 4 Days #12 cap 03/29/22 Allergies Allergy/AdvReac Type Severity Reaction Status Date / Time amoxicillin AdvReac Rash/Hives Verified 08/12/21 16:05 Review of Systems ROS Statement: Those systems with pertinent positive or pertinent negative responses have been documented in the HPI. ROS Other: All systems not noted in ROS Statement are negative. Past Medical History Past Medical History: Asthma History of Any Multi-Drug Resistant Organisms: None Reported Past Surgical History: No Surgical Hx Reported Past Psychological History: Anxiety, Depression Smoking Status: Never smoker Past Alcohol Use History: Occasional Past Drug Use History: Marijuana General Exam Limitations: no limitations General appearance: alert, in no apparent distress Head exam: Present: atraumatic, normocephalic, normal inspection Respiratory exam: Present: normal lung sounds bilaterally. Absent: respiratory distress, wheezes, rales, rhonchi, stridor Cardiovascular Exam: Present: regular rate, normal rhythm, normal heart sounds. Absent: systolic murmur, diastolic murmur, rubs, gallop, clicks GI/Abdominal exam: Present: normal bowel sounds Neurological exam: Present: alert, oriented X3, CN II-XII intact Psychiatric exam: Present: normal affect, normal mood Skin exam: Present: warm, dry, intact, normal color. Absent: rash Course Vital Signs 03/29/22 03/29/22 03/29/22 17:38 21:22 21:56 Temperature 99.4 F 97.9 F Pulse Rate 62 64 Respiratory 16 18 Rate Blood Pressure 140/68 134/72 O2 Sat by Pulse 100 98 Oximetry Medical Decision Making - Medical Decision Making This is a 22-year-old female who presents to the emergency department for vaginal bleeding. Lab work was nonactionable. HCG is 164, and the obstetrics ultrasound was unable to identify anything in the uterus or on the adnexa at this time. Findings discussed with the patient, in that it may be too early to visualize anything on ultrasound or she may have suffered a miscarriage. She will need to contact [facility] to discuss these findings and have her hCG levels trended. She is Rh positive and no RhoGAM is indicated. Urinalysis does have a small amount of bacteria present. Prescription for Keflex provided for asymptomatic bacteriuria. Return precautions reviewed in depth, the patient is instructed to return to the emergency department with any new, worsening, or concerning symptoms. Patient verbalized understanding. This case was discussed in detail with the attending ED physician. Presentation, findings, and treatment plan discussed in detail as well. - Lab Data Result diagrams: 03/29/22 19:52 03/29/22 19:52 Lab Results 03/29/22 03/29/22 03/29/22 Range/Units 19:52 19:52 19:52 WBC 5.2 (3.8-10.6) k/uL RBC 4.30 (3.80-5.40) m/uL Hgb 11.5 (11.4-16.0) gm/dL Hct 35.8 (34.0-46.0) % MCV 83.3 (80.0-100.0) fL MCH 26.7 (25.0-35.0) pg MCHC 32.1 (31.0-37.0) g/dL RDW 14.3 (11.5-15.5) % Plt Count 294 (150-450) k/uL MPV 7.2 Neutrophils % 50 % Lymphocytes % 38 % Monocytes % 6 % Eosinophils % 4 % Basophils % 1 % Neutrophils # 2.6 (1.3-7.7) k/uL Lymphocytes # 2.0 (1.0-4.8) k/uL Monocytes # 0.3 (0-1.0) k/uL Eosinophils # 0.2 (0-0.7) k/uL Basophils # 0.0 (0-0.2) k/uL Hypochromasia Slight Sodium 138 (137-145) mmol/L Potassium 4.1 (3.5-5.1) mmol/L Chloride 105 (98-107) mmol/L Carbon Dioxide 26 (22-30) mmol/L Anion Gap 7 mmol/L BUN 10 (7-17) mg/dL Creatinine 0.75 (0.52-1.04) mg/dL Est GFR (CKD-EPI)AfAm >90 (>60 ml/min/1.73 sqM) Est GFR (CKD-EPI)NonAf >90 (>60 ml/min/1.73 sqM) Glucose 93 (74-99) mg/dL Calcium 9.5 (8.4-10.2) mg/dL Total Bilirubin 0.4 (0.2-1.3) mg/dL AST 42 H (14-36) U/L ALT 47 H (4-34) U/L Alkaline Phosphatase 61 (38-126) U/L Total Protein 7.5 (6.3-8.2) g/dL Albumin 4.8 (3.5-5.0) g/dL HCG, Quant 164.1 mIU/mL Urine Color Urine Appearance (Clear) Urine pH (5.0-8.0) Ur Specific [place] (1.001-1.035) Urine Protein (Negative) Urine Glucose (UA) (Negative) Urine Ketones (Negative) Urine Blood (Negative) Urine Nitrite (Negative) Urine Bilirubin (Negative) Urine Urobilinogen (<2.0) mg/dL Ur Leukocyte Esterase (Negative) Urine RBC (0-5) /hpf Urine WBC (0-5) /hpf Ur Squamous Epith Cells (0-4) /hpf Urine Bacteria (None) /hpf Urine Mucus (None) /hpf Blood Type B Positive Blood Type Recheck No Previous Record Bld Type Recheck Status CABO Indicated 03/29/22 Range/Units 21:20 WBC (3.8-10.6) k/uL RBC (3.80-5.40) m/uL Hgb (11.4-16.0) gm/dL Hct (34.0-46.0) % MCV (80.0-100.0) fL MCH (25.0-35.0) pg MCHC (31.0-37.0) g/dL RDW (11.5-15.5) % Plt Count (150-450) k/uL MPV Neutrophils % % Lymphocytes % % Monocytes % % Eosinophils % % Basophils % % Neutrophils # (1.3-7.7) k/uL Lymphocytes # (1.0-4.8) k/uL Monocytes # (0-1.0) k/uL Eosinophils # (0-0.7) k/uL Basophils # (0-0.2) k/uL Hypochromasia Sodium (137-145) mmol/L Potassium (3.5-5.1) mmol/L Chloride (98-107) mmol/L Carbon Dioxide (22-30) mmol/L Anion Gap mmol/L BUN (7-17) mg/dL Creatinine (0.52-1.04) mg/dL Est GFR (CKD-EPI)AfAm (>60 ml/min/1.73 sqM) Est GFR (CKD-EPI)NonAf (>60 ml/min/1.73 sqM) Glucose (74-99) mg/dL Calcium (8.4-10.2) mg/dL Total Bilirubin (0.2-1.3) mg/dL AST (14-36) U/L ALT (4-34) U/L Alkaline Phosphatase (38-126) U/L Total Protein (6.3-8.2) g/dL Albumin (3.5-5.0) g/dL HCG, Quant mIU/mL Urine Color Light Yellow Urine Appearance Clear (Clear) Urine pH 7.5 (5.0-8.0) Ur Specific [place] 1.016 (1.001-1.035) Urine Protein Negative (Negative) Urine Glucose (UA) Negative (Negative) Urine Ketones Negative (Negative) Urine Blood Trace H (Negative) Urine Nitrite Negative (Negative) Urine Bilirubin Negative (Negative) Urine Urobilinogen <2.0 (<2.0) mg/dL Ur Leukocyte Esterase Negative (Negative) Urine RBC 4 (0-5) /hpf Urine WBC 1 (0-5) /hpf Ur Squamous Epith Cells <1 (0-4) /hpf Urine Bacteria Rare H (None) /hpf Urine Mucus Rare H (None) /hpf Blood Type Blood Type Recheck Bld Type Recheck Status - Radiology Data Radiology results: report reviewed, image reviewed Disposition Clinical Impression: Vaginal bleeding during Disposition: HOME SELF-CARE Instructions (If sedation given, give patient instructions): (ED) Additional Instructions: Return to the emergency department with any new, worsening, or concerning symptoms. Take the antibiotic as prescribed for 4 days. Contact [facility] and alert them of your visit. You will need to have repeat lab work done to trend your hCG levels. Your current hCG level is 164.1. Follow up with your primary care provider in 1-2 days. Prescriptions: Cephalexin [Keflex] 500 mg PO Q8HR 4 Days #12 cap Is patient prescribed a controlled substance at d/c from ED?: No Referrals: None,Stated [Primary Care Provider] - 1-2 days
[2022-03-29 19:59] LABS: Basophils % (A) 1 %; Eosinophils # (A) 0.2 k/uL (0-0.7); Eosinophils % (A) 4 %; HCT 35.8 % (34.0-46.0); HGB 11.5 gm/dL (11.4-16.0); Hypochromasia Slight; Lymphocytes % (A) 38 %; MCH 26.7 pg (25.0-35.0); MCHC 32.1 g/dL (31.0-37.0); MCV 83.3 fL (80.0-100.0); Mean Platelet Volume 7.2; Monocytes # (A) 0.3 k/uL (0-1.0); Monocytes % (A) 6 %; Neutrophils # (A) 2.6 k/uL (1.3-7.7); Neutrophils % (A) 50 %; Platelet Count 294 k/uL (150-450); RDW 14.3 % (11.5-15.5); WBC 5.2 k/uL (3.8-10.6)
[2022-03-29 20:23] LABS: ALT 47 U/L (4-34); AST 42 U/L (14-36); African American GFR (CKD) >90 (>60 ml/min/1.73 sqM); Albumin 4.8 g/dL (3.5-5.0); Alkaline Phosphatase 61 U/L (38-126); Anion Gap 7 mmol/L; Blood Urea Nitrogen 10 mg/dL (7-17); Calcium 9.5 mg/dL (8.4-10.2); Carbon Dioxide 26 mmol/L (22-30); Chloride 105 mmol/L (98-107); Glucose 93 mg/dL (74-99); Non-African American GFR(CKD) >90 (>60 ml/min/1.73 sqM); Potassium 4.1 mmol/L (3.5-5.1); Sodium 138 mmol/L (137-145); Total Bilirubin 0.4 mg/dL (0.2-1.3); Total Protein 7.5 g/dL (6.3-8.2)
--- NOTE | 2022-03-29 20:31 | US ---
EXAMINATION TYPE: Transabdominal DATE OF EXAM: 03/29/2022 7:06 PM COMPARISON: NONE CLINICAL HISTORY: Vaginal bleeding in . vaginal bleeding EXAM PERFORMED: Transvaginal (TV) and Transabdominal (TA) EXAM MEASUREMENTS: GESTATIONAL AGE / DATING Physician Established: Not yet established Dates by LMP: 01/25/22 (9 weeks/0 days) EDC: 11/01/22 Dates by First Scan: No previous this is first scan Dates by Current Scan for: No IUP seen at this time MATERNAL ANATOMY Uterus: 8.1 x 4.7 x 4.1cm Right Ovary: 2.6 x 1.9 x 1.7cm Left Ovary: 3.7 x 2.1 x 1.7cm Post CDS / Adnexa: WNL Presence of free fluid: No Presence of corpus luteal cyst: No Presence of subchorionic bleed: No GESTATION / SURVEY IUP: No IUP seen at this time Date of LMP: 01/25/22 Beta HcG (if available): N/A IMPRESSION: The uterus is empty. No adnexal mass or free fluid.
[2022-03-29 20:39] LABS: HCG,Quantitative Serum 164.1 mIU/mL
[2022-03-29 21:22] VITALS: TEMP 97.9
[2022-03-29 21:33] LABS: Appearance,Urine Clear (Clear); Bacteria,Urine Rare /hpf; Bilirubin,Urine Negative (Negative); Blood,Urine Trace (Negative); Color,Urine Light Yellow; Glucose,Urine (UA) Negative (Negative); Ketones,Urine Negative (Negative); Leukocyte Esterase,Urine Negative (Negative); Mucus,Urine Rare /hpf; Nitrite,Urine Negative (Negative); PH, Urine 7.5 (5.0-8.0); Protein,Urine Negative (Negative); RBC,Urine 4 /hpf (0-5); Specific Gravity,Urine 1.016 (1.001-1.035); Squamous Epithelial Cell,Urine <1 /hpf (0-4); Urobilinogen,Urine <2.0 mg/dL (<2.0); WBC,Urine 1 /hpf (0-5)
[2022-03-29 21:57] VITALS: BP 134/72; PULSE 64; RESP 18
== END 2022-03-29 21:57 | disposition home or self-care (01) ==
LOC: EC 17:18
DX: O20.9 Hemorrhage in early pregnancy, unspecified (principal); O99.511 Diseases of the respiratory system complicating pregnancy, first trimester; O99.321 Drug use complicating pregnancy, first trimester; O99.341 Other mental disorders complicating pregnancy, first trimester; J45.909 Unspecified asthma, uncomplicated; F41.9 Anxiety disorder, unspecified; F32.A Depression, unspecified; F12.90 Cannabis use, unspecified, uncomplicated; Z88.0 Allergy status to penicillin; Z79.899 Other long term (current) drug therapy; Z3A.01 Less than 8 weeks gestation of pregnancy
CPT/HCPCS: 36415; 76801; 76817; 80053; 81001; 84702; 85025; 86900; 86901; 99284